=== PATIENT | female | born 1935 | race Caucasian/White ===

== ENCOUNTER → 2017-05-20 | Outpatient (CLI) | payer OTHER ==
--- NOTE | 2017-05-20 17:10 | MG ---
HISTORY: SCREENING Comparison: May 04, 2016 and April 17, 2015 FINDINGS: CC and MLO projections of the left breast were obtained. Scattered fibroglandular tissue is seen to be present without significant interval change. No suspicious architectural distortion, mass or clus tered microcalcifications can be observed to suggest malignancy. No skin thickening or nipple retrac tion is appreciated. No pathological lymphadenopathy can be identified. Benign-appearing calcificat ions are noted. IMPRESSION: NO RADIOGRAPHIC EVIDENCE OF MALIGNANCY. ACR CATEGORY 2 - benign findings. FOLLOW-UP EXAM 1 YEAR. Diagnostic CAD was utilized and reviewed. * 0 (ZERO) - ASSESSMENT INCOMPLETE; ADDITIONAL IMAGING IS NEEDED. * 1/ (ONE) - NEGATIVE. * 2/II (TWO) - BENIGN FINDINGS. * 3/III (THREE) - PROBABLY BENIGN FINDING; SHORT INTERVAL FOLLOW-UP SUGGESTED. * 4/IV (FOUR) - SUSPICIOUS ABNORMALITY; BIOPSY SHOULD BE CONSIDERED. * 5/V - HIGHLY SUSPICIOUS OF MALIGNANCY; BIOPSY SHOULD BE PERFORMED. A NEGATIVE X-RAY REPORT SHOULD NOT DELAY BIOPSY IF A DOMINANT OR CLINICALLY SUSPICIOUS MASS IS PRESENT; 4 TO 8 PERCENT OF CANCERS ARE NOT IDENTIFIED BY X-RAY. A NEGA TIVE REPORT MAY REINFORCE THE CLINICAL IMPRESSION. ADENOSIS AND DENSE BREASTS MAY OBSCURE AN UNDERLY ING NEOPLASM. Reported By:
== END ==
LOC: RAD 09:06
PROVIDERS: ATTEND Internal Medicine
DX: Z12.31 Encounter for screening mammogram for malignant neoplasm of breast (principal)
CPT/HCPCS: 77067

== ENCOUNTER 2024-10-05 12:11 | Observation (INO) ==
[2024-10-05 12:52] LABS: MEAN PLATELET VOLUME 7.0 fL (7.4-11.0); RED CELL DISTRIBUTION WIDTH 14.1 % (11.6-16.5)
[2024-10-05 12:58] LABS: INR 1.00 (0.8-1.3)
[2024-10-05 13:04] VITALS: BMI 23.1
[2024-10-05 13:09] LABS: CHOL/HDL RATIO 2.6 (0.0-5.0); COR NA(FOR HYPERGLY) 138 mmol/L (136-145); CREATININE 1.05 mg/dL (0.55-1.02); eGFR NON BLACK RACES 52 (>60)
--- NOTE | 2024-10-05 13:44 | CT ---
EXAM: BRAIN W/O CON HISTORY: dizziness, slurred speech, facial drooping; COMPARISON: None. TECHNIQUE: Axial CT of the head is performed from the base of the skull through the vertex without contrast . Multiplaner reformats are generated from the original axial data. FINDINGS: There is no evidence of an acute intracranial hemorrhage or extra-axial fluid collection. There is no mass effect, midline shift, or evidence of cerebral edema. The ventricular size is normal. Cortical diane-white matter differentiation is maintained without sulcal effacement. There is no evidence o f an acute stage, large artery territorial infarction. The calvarium is intact. Paranasal sinuses are predominantly clear. There are small dependent bilateral mastoid effusions of incidental note. Atherosclerosis is present within the bilateral cavernous ICA segments. Cortical brain volume is age-appropriate with mild volume loss observed. There are mild degenerative white matter changes associated with normal aging and microangiopathic degeneration. The cerebellar tonsils are normal in position. No suprasellar asymmetry is identified. IMPRESSION: No acute intracranial abnormalities Involutional changes of the brain parenchyma which are considered typical of age If there is clinical concern for an occult neurologic abnormality, MRI of the brain without and with contrast would provide a higher level of initial sensitivity. Radiation dose reduction was achieved through individualized adjustment of kVP and/or mA, through adaptive statistical iterative reconstruction, and/or through automated tube current modulation. THIS IS AN ELECTRONICALLY VERIFIED FINAL REPORT 10/05/2024 1:40 PM - Electronically signed by Demetrius Cerna MD
[2024-10-05] MEDS: ASPIRIN 81 MG CHEWTAB PO ONE (13:53)
--- NOTE | 2024-10-05 13:54 | TELESTROKE ---
[facility] Consult Date of Consult Date of Exam: 10/05/24 Time of Arrival to the ED: 12:11 Allergies Allergies Allergy/AdvReac Type Severity Reaction Status Date / Time meperidine (From Demerol) AdvReac Mild RASH Verified 04/27/24 14:28 Vital Signs Vital Signs: Temp Pulse Resp BP Pulse Ox O2 Del Method 10/05/24 12:31 98.1 F 90 16 155/68 97 Room Air 10/05/24 12:30 89 22 154/70 97 Room Air History of Present Illness History of Present Illness: [facility] Patient Name:Rupa Auguste Date of :1935 Identification Number: Date of Service:10/05/2024 12:27:13 Diagnosis: R55 - Syncope (blackout, fainting, vasovagal attack) G45.9 - Transient cerebral ischemic attack, unspecified Impression: Pt is a 89 YOF with PMH of HTN, HLD, PD who presented with complaint of dizzy, passed out, left facial droop. NIHSS: 0. Deferred thrombolytics. Admit for TIA/STROKE vs SYNCOPE vs TOXIC/METABOLIC/INFECTIOUS process. Monitor neuro checks/VS q4h with telemetry. Recommend fall precautions and seizure precautions. Goal SBP b/w 100-140 afterwards. Get ORTHOSTATIC VS. Start ASA in no ICH on final CT head read + STATIN if no contraindications. Get MRI BRAIN W/O, routine CTA head/neck, and ECHO. Get AMMONIA, BLOOD CX x2, COVID, UDS, ETOH, ESR/CRP, TROP, CK, TSH, B12, BNP, LACTIC ACID, LIPID PANEL, and A1C. Get WORKUP for TOXIC/METABOLIC/INFECTIOUS causes. PT/OT/ST eval. Our recommendations are outlined below. Recommendations: Stroke/Telemetry Floor Neuro Checks (Q2) Bedside Swallow Eval DVT Prophylaxis IV Fluids, Normal Saline Head of Bed 30 Degrees Euglycemia and Avoid Hyperthermia (PRN Acetaminophen) Sign Out: Discussed with Emergency Department Provider Advanced Imaging: Advanced Imaging Deferred because: Non-disabling symptoms as verified by the patient; no cortical signs so not consistent with LVO. Metrics: Last Known Well: Unknown Dispatch Time: 10/05/2024 12:27:12 Arrival Time: 10/05/2024 12:11:00 Initial Response Time: 10/05/2024 12:39:27Symptoms: dizzy, passed out, left facial droop. Initial patient interaction: 10/05/2024 12:49:42 NIHSS Assessment Completed: 10/05/2024 12:57:19Patient is not a candidate for Thrombolytic. Thrombolytic Medical Decision: 10/05/2024 12:58:37Patient was not deemed candidate for Thrombolytic because of following reasons: LKW outside 4.[address] Head: Images were unavailable to me at the time of the exam and after. PACS issues. Rads Read: No acute intracranial abnormalities. Involutional changes of the brain parenchyma which are considered typical of age. Primary Provider Notified of Diagnostic Impression and Management Plan on: 10/05/2024 13:45:13 History of Present Illness: Patient was brought by EMS for symptoms of dizzy, passed out, left facial droop. Pt is a 89 YOF with PMH of HTN, HLD, PD who presented with complaint of dizzy, passed out, left facial droop. Her last known well not clear (she had dizzy yesterday, passed out today). She was mowing lawn and passed out and family found her and noted possible left facial droop. She had left ankle pain, and right arm scrapes. Past Medical History: Hypertension Hyperlipidemia There is no history of Stroke Medications: No Anticoagulant use No Antiplatelet use Reviewed EMR for current medications Allergies: Reviewed Social History: Smoking: No Alcohol Use: No Drug Use: No Family History: There is no family history of premature cerebrovascular disease pertinent to this consultation ROS : 14 Points Review of Systems was performed and was negative except mentioned in HPI. Past Surgical History: There Is No Surgical History Contributory To Todays Visit Examination: BP(166/72),Pulse(82),Blood Glucose(163) 1A: Level of Consciousness - Alert; keenly responsive+ 0 1B: Ask Month and Age - Both Questions Right+ 0 1C: Blink Eyes & Squeeze Hands - Performs Both Tasks+ 0 2: Test Horizontal Extraocular Movements - Normal+ 0 3: Test Visual Rivera - No Visual Loss+ 0 4: Test Facial Palsy (Use Grimace if Obtunded) - Normal symmetry+ 0 5A: Test Left Arm Motor Drift - No Drift for 10 Seconds+ 0 5B: Test Right Arm Motor Drift - No Drift for 10 Seconds+ 0 6A: Test Left Leg Motor Drift - No Drift for 5 Seconds+ 0 6B: Test Right Leg Motor Drift - No Drift for 5 Seconds+ 0 7: Test Limb Ataxia (FNF/Heel-Gregory) - No Ataxia+ 0 8: Test Sensation - Normal; No sensory loss+ 0 9: Test Language/Aphasia - Normal; No aphasia+ 0 10: Test Dysarthria - Normal+ 0 11: Test Extinction/Inattention - No abnormality+ 0 NIHSS Score:0 NIHSS Free Text :Age/month/year: //. Pre-Morbid Modified Patricio Scale:0 Points = No symptoms at all Spoke with :ED This consult was conducted in real time using interactive audio and video technology. Patient was informed of the technology being used for this visit and agreed to proceed. Patient located in hospital and provider located at home/office setting. Patient is being evaluated for possible acute neurologic impairment and high probability of imminent or life-threatening deterioration. I spent total of 35 minutes providing care to this patient, including time for face to face visit via telemedicine, review of medical records, imaging studies and discussion of findings with providers, the patient and/or family. Dr Bernardo Richardson [facility] For Inpatient follow-up with [facility] physician please call [facility] at . As we are not an outpatient service for any post hospital discharge needs please contact the hospital for assistance. If you have any questions for the [facility] physicians or need to reconsult for clinical or diagnostic changes please contact us via [facility] at . Medical Decision Making 10/05/24 12:39 10/05/24 12:39 Labs: Laboratory Results - last 24 hr 10/05/24 12:39 WBC 9.4 RBC 4.45 Hgb 13.7 Hct 40.8 MCV 91.6 MCH 30.8 MCHC 33.6 RDW 14.1 Plt Count 373 MPV 7.0 L Neut % (Auto) 83.0 H Lymph % (Auto) 11.1 L [place] % (Auto) 4.6 Eos % (Auto) 0.8 L Baso % (Auto) 0.5 Neut # (Auto) 7.8 H Lymph # (Auto) 1.0 L [place] # (Auto) 0.4 Eos # (Auto) 0.1 Baso # (Auto) 0.0 Absolute Nucleated RBC 0.1 PT 13.2 INR Target Range - INR 1.00 APTT 26.5 PTT Comment - Fibrinogen 397 Sodium 137 Corrected Sodium 138 Potassium 4.4 Chloride 102 Carbon Dioxide 25.3 BUN 15 Creatinine 1.05 H Est GFR (MDRD) Af Amer > 60 Est GFR (MDRD) Non-Af 52 L Glucose 148 H Calcium 9.0 Corrected Calcium TNP Total Bilirubin 0.70 AST 15 ALT 9 L Alkaline Phosphatase 169 H Creatine Kinase 34 Troponin I High Sens 7.5 Total Protein 10.0 H Albumin 4.7 Globulin 5.3 H Albumin/Globulin Ratio 0.9 L Triglycerides 74 Cholesterol 172 LDL Cholesterol, Calc 92 HDL Cholesterol 65 H Cholesterol/HDL Ratio 2.6
--- NOTE | 2024-10-05 14:38 | EKG ---
Test Reason : poss stroke Blood Pressure : */* mmHG Vent. Rate : 92 BPM Atrial Rate : 92 BPM P-R Int : 172 ms QRS Dur : 96 ms QT Int : 342 ms P-R-T Axes : 51 27 56 degrees QTc Int : 422 ms Normal sinus rhythm Normal ECG No previous ECGs available Confirmed by German Cano MD ([id number]) on 10/05/2024 3:36:29 PM Referred By: Confirmed By: German Cano MD
--- NOTE | 2024-10-05 15:00 | DR.DIZZY ---
HPI Time seen Time Seen by Provider: 10/05/24 12:36 PCP Primary Care Physician: Sara HPI Comment HPI Comment: Patient had episode of dizziness while going to the bathroom yesterday. 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 Patient's family states they noticed facial droop and slurred speech about an hour prior to arrival. She did have some pain and edema on the left ankle and a skin tear on the right forearm. At this time the symptoms have resolved. Teleneuro protocol was activated. Complaint Chief Complaint:: Patient had an episode of dizziness going to bathroom yesterday, she felt better today and began mowing grass. A limb knocked her hat off and she bent over to machine operator picker and passed out. 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 She has pain and edema left lateral ankle and skin tear to right forearm. No obvious facial droop or neuro deficit at present COVID-19 Coronavirus risk:travel/contact w/high risk person: No Has patient experienced Coronavirus symptoms: No Source History Provided: Patient Mode of Arrival Mode of Arrival: Wheelchair Timing Onset of Chief Complaint: 10/04/24 Context Stroke Symptoms: Slurring and Dizziness PMH PMH Past Medical History: Yes Past Medical History: Hypertension Past Medical History Comment: Parkinson, breast CA Past Surgical History: Yes Surgical History: Hysterectomy, Mastectomy and Tonsillectomy Family History History of Family Medical Conditions: Yes Family Medical History: Hypertension Social History Does patient currently use any type of tobacco product: No Have you used tobacco products in the last 12 months: No Type of Tobacco Use: None Does any household member use tobacco: No Alcohol Use: None Do you use any recreational Drugs:: No Lives With: Family Lives Where: Home Travel Risk Coronavirus risk:travel/contact w/high risk person: No Has patient experienced Coronavirus symptoms: No Infectious screening In the last 2 months have you had wt loss of >10#?: NO Have you had fever, night sweats or hemotysis?: No Have you traveled outside the country in the last 6 months?: No Isolation: Standard ROS Review of Systems Constitutional: No Symptoms Reported Eyes: No Symptoms Reported ENTM: No Symptoms Reported Respiratoy: No Symptoms Reported Cardiovascular: No Symptoms Reported Gastrointestinal/Abdominal: No Symptoms Reported Genitourinary: Frequency; negative Dysuria Neurological: See HPI Musculoskeletal: No Symptoms Reported Integumentary: No Symptoms Reported Hematologic/Lymphatic: No Symptoms Reported Endocrine: No Symptoms Reported Psychiatric: No Symptoms Reported All Other Systems: Reviewed and Negative PE Vital Signs Vitals: Vital Signs Temperature 98.1 F Pulse Rate 96 Pulse Rate 95 Pulse Rate 92 Pulse Rate 90 Pulse Rate 93 Pulse Rate 262 Pulse Rate 90 Pulse Rate 89 Respiratory Rate 16 Respiratory Rate 22 Blood Pressure 133/63 Blood Pressure 156/71 Blood Pressure 155/68 Blood Pressure 154/70 O2 Sat by Pulse Oximetry 97 O2 Sat by Pulse Oximetry 96 O2 Sat by Pulse Oximetry 98 O2 Sat by Pulse Oximetry 97 O2 Sat by Pulse Oximetry 97 O2 Sat by Pulse Oximetry 80 O2 Sat by Pulse Oximetry 97 O2 Sat by Pulse Oximetry 97 General Limitations: No Limitations General Appearance: Alert and In No Apparent Distress Head Head Exam: Normal Inspection Eyes Eye exam: Normal Appearance ENT ENT Exam: Normal Exam, Normal Oropharynx and Normal External Ear Exam Neck Neck Exam: Normal Inspection and Full ROM Chest Chest Inspection: Normal Inspection Respiratory Respiratory Exam: Normal Lung Sounds Bilat Cardiovascular Cardiovascular Exam: Regular Rate and Normal Rhythm Abdominal Exam Abdominal Exam: Normal Inspection, Normal Bowel Sounds and Soft Rectal Rectal Exam: Deferred Extremeties Extremities Exam: Normal Inspection and Full ROM Back Back Exam: Normal Inspection and Full ROM Neurologic Neurological Exam: Alert and Oriented X3 Psychiatric Psychiatric Exam: Normal Affect and Normal Mood Skin Skin Exam: Warm, Dry, Intact and Normal Color COURSE Treatment Treatment: Discussed results of workup with patient. Patient refused MRI of the head due to claustrophobia stating that even with medicine she does not want it. She states she understands the risks but she still refused. Discussed case with teleneuro and they recommended CTA head and neck, MRI of the head and echocardiogram. They also recommended admission for observation. At this time I believe patient has had a TIA and may also have symptoms related to UTI. Consultation Called: 15:50 Consultation Comments: Discussed case with Dr. Rivero and he is agreeable to admission. [facility]OR Labs Reviewed 10/05/24 12:39 10/05/24 12:39 Laboratory: WBC 9.4 X10^3/uL (3.6-10.0) 10/05/24 12:39 RBC 4.45 X10^6/uL (3.5-5.4) 10/05/24 12:39 Hgb 13.7 g/dL (12.0-16.0) 10/05/24 12:39 Hct 40.8 % (36.0-47.0) 10/05/24 12:39 MCV 91.6 fL (80.0-100.0) 10/05/24 12:39 MCH 30.8 pg (27.0-34.0) 10/05/24 12:39 MCHC 33.6 g/dL (33.0-35.0) 10/05/24 12:39 RDW 14.1 % (11.6-16.5) 10/05/24 12:39 Plt Count 373 X10^3/uL (150.0-450.0) 10/05/24 12:39 MPV 7.0 fL (7.4-11.0) L 10/05/24 12:39 Neut % (Auto) 83.0 % (42.0-75.0) H 10/05/24 12:39 Lymph % (Auto) 11.1 % (21.0-51.0) L 10/05/24 12:39 [place] % (Auto) 4.6 % (0.0-13.0) 10/05/24 12:39 Eos % (Auto) 0.8 % (0.9-2.9) L 10/05/24 12:39 Baso % (Auto) 0.5 % (0.2-1.0) 10/05/24 12:39 Neut # (Auto) 7.8 x10^3/uL (2.2-4.8) H 10/05/24 12:39 Lymph # (Auto) 1.0 X10^3/uL (1.3-2.9) L 10/05/24 12:39 [place] # (Auto) 0.4 x10^3/uL (0.3-0.8) 10/05/24 12:39 Eos # (Auto) 0.1 x10^3/uL (0.0-0.2) 10/05/24 12:39 Baso # (Auto) 0.0 X10^3/uL (0.0-0.1) 10/05/24 12:39 Absolute Nucleated RBC 0.1 /100WBC 10/05/24 12:39 PT 13.2 SECONDS (11.8-14.3) 10/05/24 12:39 INR Target Range - 10/05/24 12:39 INR 1.00 (0.8-1.3) 10/05/24 12:39 APTT 26.5 SECONDS (22.9-36.5) 10/05/24 12:39 PTT Comment - 10/05/24 12:39 Fibrinogen 397 mg/dL (239-489) 10/05/24 12:39 Sodium 137 mmol/L (136-145) 10/05/24 12:39 Corrected Sodium 138 mmol/L (136-145) 10/05/24 12:39 Potassium 4.4 mmol/L (3.5-5.1) 10/05/24 12:39 Chloride 102 mmol/L (98-107) 10/05/24 12:39 Carbon Dioxide 25.3 mmol/L (21-32) 10/05/24 12:39 BUN 15 mg/dL (7-18) 10/05/24 12:39 Creatinine 1.05 mg/dL (0.55-1.02) H 10/05/24 12:39 Est GFR (MDRD) Af Amer > 60 (>60) 10/05/24 12:39 Est GFR (MDRD) Non-Af 52 (>60) L 10/05/24 12:39 Glucose 148 mg/dL (65-99) H 10/05/24 12:39 Calcium 9.0 mg/dL (8.5-10.1) 10/05/24 12:39 Corrected Calcium TNP 10/05/24 12:39 Total Bilirubin 0.70 mg/dL (0.2-1.0) 10/05/24 12:39 AST 15 Units/L (15-37) 10/05/24 12:39 ALT 9 Units/L (12-78) L 10/05/24 12:39 Alkaline Phosphatase 169 Units/L (46-116) H 10/05/24 12:39 Creatine Kinase 34 Units/L (26-192) 10/05/24 12:39 Troponin I High Sens 7.5 ng/L (4.0-60.0) 10/05/24 12:39 Total Protein 10.0 g/dL (6.4-8.2) H 10/05/24 12:39 Albumin 4.7 g/dL (3.4-5.0) 10/05/24 12:39 Globulin 5.3 g/dL (2.5-4.5) H 10/05/24 12:39 Albumin/Globulin Ratio 0.9 Ratio (1.1-2.1) L 10/05/24 12:39 Triglycerides 74 mg/dL (0-150) 10/05/24 12:39 Cholesterol 172 mg/dL (0-200) 10/05/24 12:39 LDL Cholesterol, Calc 92 mg/dL (0-100) 10/05/24 12:39 HDL Cholesterol 65 mg/dL (40-60) H 10/05/24 12:39 Cholesterol/HDL Ratio 2.6 (0.0-5.0) 10/05/24 12:39 Blood Type O POSITIVE 10/05/24 12:39 Antibody Screen Negative 10/05/24 12:39 Opioid Opioid Risk Tool Age (Iker box if 16-45): No History of Preadolescent Sexual Abuse: No Total: 0 Total Score Risk Category: Low Risk Copyright: Jeff MAYA predicting aberrant behaviors Discharge Plan Diagnosis Discharge Problem: Brain TIA, Acute UTI Discharge Plan Patient Disposition: 09 ADMITTED INPATIENT Condition: Stable Prescriptions: No Action primidone 50 mg tablet 50 mg PO QHS 30 Days Qty: 30 1RF diclofenac sodium 1 % gel 4 g topical QID 14 Days Qty: 100 5RF Rx Instructions: apply to single knee, ankle, foot; for foot includes sole/toes/top of foot buspirone 5 mg tablet 5 mg PO BID 30 Days Qty: 60 1RF amlodipine 5 mg tablet 5 mg PO BID 30 Days Qty: 60 4RF ondansetron HCl 4 mg tablet 4 mg PO BID PRN carbidopa-levodopa 25-100 mg tablet 1 tab PO TID simvastatin 20 mg tablet 20 mg PO DAILY Health Concerns: Post Hospitalization: new medications and changes needed to prevent readmission or further decline. Pt educated and given instructions on all concerns. Plan of Treatment: Continue with present treatment and follow up plan. Pt is to keep follow up appointment as instructed and take medications as ordered. Orders to Discharge Patient Discharge Orders: Transfer (Routine); Ordered 10/05/24 Ordered By: Rico Rodriguez Follow ups/Referrals Follow ups/Referrals: BRANDEE LEVINE [Primary Care Provider, Unknown] - 3 days Instructions Stand Alone Forms: Find Help Web Site, Post Hospital Follow Up Care Print Language: KAZAKH
--- NOTE | 2024-10-05 15:07 | RAD ---
EXAM: CHEST, 1 VIEW HISTORY: dizziness, slurred speech, facial drooping; COMPARISON: No relevant prior studies were available for comparison at the time of interpretation. TECHNIQUE: CHEST, 1 VIEW FINDINGS: Chest: Lines and tubes: None Mediastinum: Cardiac and mediastinal shadow is within normal limits for size and contour. Pulmonary vessels: No pulmonary vascular congestion. Lung corbin: No suspicious airspace opacity. Pleura: No effusion. No pneumothorax. Bones and soft tissues: No acute osseous or soft tissue abnormality. IMPRESSION: 1. No acute cardiopulmonary abnormality THIS IS AN ELECTRONICALLY VERIFIED FINAL REPORT 10/05/2024 3:03 PM - Electronically signed by Sandor Mendez MD
[2024-10-05 15:09] LABS: BLOOD/HEMOGLOBIN,URINE 1+ (NEGATIVE); LEUKOCYTE ESTERASE ,URINE 2+ (NEGATIVE); NITRITES,URINE POSITIVE (NEGATIVE)
[2024-10-05 15:11] LABS: APPEARANCE,URINE CLOUDY (CLEAR)
[2024-10-05 15:18] LABS: SQUAMOUS EPITHELIAL CELL,UR FEW /HPF (NEGATIVE)
[2024-10-05] MEDS ORDERED: ULTRAM PO PRN (16:38)
[2024-10-05] MEDS ORDERED: TYLENOL 325 MG TAB PO PRN (16:38)
[2024-10-05] MEDS ORDERED: CONSULT PHARMACY - POTASSIUM & MAGNESIUM XX SCH (16:38)
[2024-10-05] MEDS: OMNIPAQUE 350 mg/mL 100 mL BTL 100 ML ONE (17:27)
[2024-10-05] MEDS: ASPIRIN 81 MG CHEWTAB ONE (17:27)
[2024-10-05] MEDS: LEVAQUIN TAB 750 MG PO SCH (17:36)
--- NOTE | 2024-10-05 18:56 | CT ---
EXAM: CTA CAROTID/NECK HISTORY: Left facial droop. TECHNIQUE: Spiral axial CT images are obtained through the neck from the skull base to the thoracic inlet with the administration of intravenous contrast. Sagittal and coronal reformatted images were reconstructed. 2-D and 3-D MIP vascular images are reformatted. Evaluation for stenosis performed by employing NASCET criteria. COMPARISON: None available. FINDINGS: Note: Exam severely degraded by motion artifacts (especially at the carotid bifurcations). There is evidence for calcified atherosclerotic mural plaques seen within the cavernous, clinoid, ophthalmic, and communicating segments of the carotid siphons, with estimated mild (less than 50%), presumed nonhemodynamically significant, segmental stenoses. There is calcified atherosclerotic mural plaque seen at the carotid bifurcations and ICA origins (left greater than right), with an estimated mild (less than 50%), presumed nonhemodynamically significant, ICA origin stenoses. There is no discernible definite hemodynamically significant (or greater than 70%) ICA or ECA stenosis or occlusion seen. Both common carotid arteries are widely patent. Both vertebral arteries are patent with antegrade blood flow. There is mild left vertebral artery dominance. Normal great vessel branch anatomy is seen at the aortic arch. There is severe calcified aortic arch mural plaque. IMPRESSION: 1. Calcified atherosclerotic mural plaques seen within the cavernous, clinoid, ophthalmic, and communicating segments of the carotid siphons, with estimated mild (less than 50%), presumed nonhemodynamically significant, segmental stenoses. 2. Calcified atherosclerotic mural plaque seen at the carotid bifurcations and ICA origins (left greater than right), with an estimated mild (less than 50%), presumed nonhemodynamically significant, ICA origin stenoses. 3. No discernible definite hemodynamically significant (or greater than 70%) ICA or ECA stenosis or occlusion seen. 4. No gross arterial dissection or aneurysmal dilatation noted. 5. Patent vertebral arteries; left vertebral artery dominance. THIS IS AN ELECTRONICALLY VERIFIED FINAL REPORT 10/05/2024 6:52 PM - Electronically signed by Charlie Cheng MD
--- NOTE | 2024-10-05 18:59 | CT ---
EXAM: CTA HEAD HISTORY: Left facial droop. Dizziness. TECHNIQUE: Spiral axial CT images are obtained through the brain with the administration of intravenous contrast. Sagittal and coronal reformatted images were reconstructed. 2-D and 3-D MIP vascular images were reformatted. Evaluation for carotid stenosis performed by implying NASCET criteria. COMPARISON: Head CT dated October 05, 2024. FINDINGS: There is evidence for calcified atherosclerotic mural plaques seen within the petrous, laerum, cavernous, clinoid, ophthalmic, and communicating segments of the carotid siphons, with estimated mild (less than 50%), presumed nonhemodynamically significant, segmental stenoses. The [place] of Blood is intact. There is no cerebral aneurysm or dissection seen. No hemodynamically significant arterial stenosis or occlusion involving the anterior cerebral arteries, middle cerebral arteries, and posterior cerebral arteries seen. The basilar artery and distal vertebral arteries are within normal limits. The visualized internal cerebral veins, emissary veins, and dural venous sinuses are patent. IMPRESSION: 1. Calcified atherosclerotic mural plaques seen within the petrous, laerum, cavernous, clinoid, ophthalmic, and communicating segments of the carotid siphons, with estimated mild (less than 50%), presumed nonhemodynamically significant, segmental stenoses. 2. No definitely hemodynamically significant (or greater than 50%) arterial stenosis or occlusion seen. 3. No gross cerebral aneurysm or dissection seen. 4. Normal the dural venous sinuses and emissary veins are patent. THIS IS AN ELECTRONICALLY VERIFIED FINAL REPORT 10/05/2024 6:56 PM - Electronically signed by Charlie Cheng MD
[2024-10-05] MEDS: MAG-OX TAB PO SCH (20:33)
[2024-10-05] MEDS: RESTORIL CAP 15 MG PO PRN (20:34)
[2024-10-05] MEDS: NORVASC TAB 5 MG PO SCH (20:34)
[2024-10-05] MEDS: BUSPAR PO SCH (20:34)
[2024-10-05] MEDS: SINEMET (PLAIN) 25/100 MG PO SCH (21:22)
[2024-10-06 05:42] LABS: MEAN PLATELET VOLUME 6.9 fL (7.4-11.0); RED CELL DISTRIBUTION WIDTH 14.1 % (11.6-16.5)
[2024-10-06 05:56] LABS: CREATININE 0.84 mg/dL (0.55-1.02); eGFR NON BLACK RACES > 60 (>60)
--- NOTE | 2024-10-06 06:54 | RAD ---
EXAM: ANKLE, LEFT HISTORY: PAIN AFTER FALL; COMPARISON: None. TECHNIQUE: 3 views FINDINGS: Nondisplaced transverse lateral malleolus fracture. Symmetric ankle mortise. Intact talar dome. Moderate anterior and lateral soft tissue edema. IMPRESSION: Nondisplaced lateral malleolus fracture. THIS IS AN ELECTRONICALLY VERIFIED FINAL REPORT 10/06/2024 6:42 AM - Electronically signed by James Mendoza MD
--- NOTE | 2024-10-06 06:54 | RAD ---
EXAM: FOREARM, RIGHT two-view HISTORY: PAIN AFTER FALL; COMPARISON: None FINDINGS: No acute fracture or dislocation. No acute soft tissue abnormality. IMPRESSION: No acute fracture or dislocation. THIS IS AN ELECTRONICALLY VERIFIED FINAL REPORT 10/06/2024 6:40 AM - Electronically signed by Matthew Whitney MD
[2024-10-06] MEDS: PLAVIX PO SCH (10:17)
[2024-10-06] MEDS: ZOFRAN ODT SL PRN (15:26)
[2024-10-07 06:37] LABS: MEAN PLATELET VOLUME 7.3 fL (7.4-11.0); RED CELL DISTRIBUTION WIDTH 14.1 % (11.6-16.5)
[2024-10-07 06:39] LABS: CREATININE 1.04 mg/dL (0.55-1.02); eGFR NON BLACK RACES 53 (>60)
--- NOTE | 2024-10-07 10:47 | DR.H&P ---
H&P History & Physical for Day of: H&P Date: 10/06/24 Chief Complaint Chief Complaint: slurred speech Dizziness, syncope, History of Present Illness History of Present Illness: Patient is a 89-year-old female with a past medical history of Parkinson's disease, hypertension, hyperlipidemia presenting after having a syncopal episode after she was mowing the lawn. Her family stated that she had a facial droop and slurred speech prior to arrival to the ER. She also had left ankle pain. Per ER note, on arrival patient symptoms appear to have resolved. Teleneurology was consulted. Labs/imaging: WBC 7.2, hemoglobin 12.2, platelets 352, sodium 138, potassium 4.1, creatinine 0.84, glucose 94, UA consistent with infection, urine culture pending. CT of the head was negative,'s chest x-ray was negative, she did have a CTA of the head and neck that revealed areas that are less than 50% stenosis and are nonhemodynamically significant. An x-ray of the left ankle did reveal a nondisplaced fracture. Patient had also refused to have an MRI. Patient was admitted for TIA, acute cystitis, left ankle fracture. She will have an echo this morning. She is on IV antibiotics Levaquin. Will consult podiatry for the fracture. Restart home medications. Otherwise continue current treatment plan. Continue closely monitor and follow-up labs/imaging. Time spent for clinical assessment, reviewing labs/imaging, physical exam, decision making and documentation greater than 45 mins. Past Medical History Past Medical History: Hypertension Past Surgical History Surgical History: Hysterectomy, Mastectomy, Neurosurgery, Ortho Surgery and Tonsillectomy Family History Family Medical History: Cancer Social History Does patient currently use any type of tobacco product: No Have you used tobacco products in the last 12 months: No Type of Tobacco Use: None Does any household member use tobacco: No Alcohol Use: None Drug Use: None Medications Home Medications: Home Medications Medication Instructions Recorded Confirmed Type carbidopa 25 mg-levodopa 100 mg 1 tab PO TID 10/05/24 10/05/24 History tablet ondansetron HCl 4 mg tablet 4 mg PO BID PRN 10/05/24 0 10/05/24 History simvastatin 20 mg tablet 20 mg PO DAILY 10/05/2409/26 History Allergies Allergies Allergy/AdvReac Type Severity Reaction Status Date / Time meperidine (From Demerol) AdvReac Mild RASH Verified 04/27/24 14:28 Labs 10/07/24 05:44 10/07/24 05:44 Labs: 10/05/24 14:59 Urine,Clean Catch Urine Culture - Preliminary Laboratory WBC 7.2 X10^3/uL (3.6-10.0) 10/06/24 05:28 RBC 3.95 X10^6/uL (3.5-5.4) 10/06/24 05:28 Hgb 12.2 g/dL (12.0-16.0) 10/06/24 05:28 Hct 35.8 % (36.0-47.0) L 10/06/24 05:28 MCV 90.8 fL (80.0-100.0) 10/06/24 05:28 MCH 31.0 pg (27.0-34.0) 10/06/24 05:28 MCHC 34.1 g/dL (33.0-35.0) 10/06/24 05:28 RDW 14.1 % (11.6-16.5) 10/06/24 05:28 Plt Count 352 X10^3/uL (150.0-450.0) 10/06/24 05:28 MPV 6.9 fL (7.4-11.0) L 10/06/24 05:28 Neut % (Auto) 62.9 % (42.0-75.0) 10/06/24 05:28 Lymph % (Auto) 24.0 % (21.0-51.0) 10/06/24 05:28 [place] % (Auto) 9.9 % (0.0-13.0) 10/06/24 05:28 Eos % (Auto) 2.5 % (0.9-2.9) 10/06/24 05:28 Baso % (Auto) 0.7 % (0.2-1.0) 10/06/24 05:28 Neut # (Auto) 4.5 x10^3/uL (2.2-4.8) 10/06/24 05:28 Lymph # (Auto) 1.7 X10^3/uL (1.3-2.9) 10/06/24 05:28 [place] # (Auto) 0.7 x10^3/uL (0.3-0.8) 10/06/24 05:28 Eos # (Auto) 0.2 x10^3/uL (0.0-0.2) 10/06/24 05:28 Baso # (Auto) 0.1 X10^3/uL (0.0-0.1) 10/06/24 05:28 Absolute Nucleated RBC 0.1 /100WBC 10/06/24 05:28 PT 13.2 SECONDS (11.8-14.3) 10/05/24 12:39 INR Target Range - 10/05/24 12:39 INR 1.00 (0.8-1.3) 10/05/24 12:39 APTT 26.5 SECONDS (22.9-36.5) 10/05/24 12:39 PTT Comment - 10/05/24 12:39 Fibrinogen 397 mg/dL (239-489) 10/05/24 12:39 Sodium 138 mmol/L (136-145) 10/06/24 05:28 Corrected Sodium TNP 10/06/24 05:28 Potassium 4.1 mmol/L (3.5-5.1) 10/06/24 05:28 Chloride 103 mmol/L (98-107) 10/06/24 05:28 Carbon Dioxide 29.6 mmol/L (21-32) 10/06/24 05:28 BUN 11 mg/dL (7-18) 10/06/24 05:28 Creatinine 0.84 mg/dL (0.55-1.02) 10/06/24 05:28 Est GFR (MDRD) Af Amer > 60 (>60) 10/06/24 05:28 Est GFR (MDRD) Non-Af > 60 (>60) 10/06/24 05:28 Glucose 94 mg/dL (65-99) 10/06/24 05:28 Calcium 8.9 mg/dL (8.5-10.1) 10/06/24 05:28 Corrected Calcium TNP 10/06/24 05:28 Magnesium 2.0 mg/dL (2.0-2.9) 10/06/24 05:28 Total Bilirubin 0.80 mg/dL (0.2-1.0) 10/06/24 05:28 AST 13 Units/L (15-37) L 10/06/24 05:28 ALT 11 Units/L (12-78) L 10/06/24 05:28 Alkaline Phosphatase 145 Units/L (46-116) H 10/06/24 05:28 Creatine Kinase 34 Units/L (26-192) 10/05/24 12:39 Troponin I High Sens 7.5 ng/L (4.0-60.0) 10/05/24 12:39 Total Protein 8.3 g/dL (6.4-8.2) H 10/06/24 05:28 Albumin 3.8 g/dL (3.4-5.0) 10/06/24 05:28 Globulin 4.5 g/dL (2.5-4.5) 10/06/24 05:28 Albumin/Globulin Ratio 0.8 Ratio (1.1-2.1) L 10/06/24 05:28 Triglycerides 74 mg/dL (0-150) 10/05/24 12:39 Cholesterol 172 mg/dL (0-200) 10/05/24 12:39 LDL Cholesterol, Calc 92 mg/dL (0-100) 10/05/24 12:39 HDL Cholesterol 65 mg/dL (40-60) H 10/05/24 12:39 Cholesterol/HDL Ratio 2.6 (0.0-5.0) 10/05/24 12:39 Specimen Type Clean catch urine 10/05/24 14:59 Urine Color [place] (YELLOW) 10/05/24 14:59 Urine Appearance Cloudy (CLEAR) 10/05/24 14:59 Urine pH 6.0 (5.0 - 8.0) 10/05/24 14:59 Ur Specific [place] 1.015 (1.000-1.030) 10/05/24 14:59 Urine Protein 2+ (NEGATIVE) 10/05/24 14:59 Urine Glucose (UA) Negative (NEGATIVE) 10/05/24 14:59 Urine Ketones Negative (NEGATIVE) 10/05/24 14:59 Urine Blood 1+ (NEGATIVE) 10/05/24 14:59 Urine Nitrite Positive (NEGATIVE) 10/05/24 14:59 Urine Bilirubin Negative (NEGATIVE) 10/05/24 14:59 Urine Urobilinogen 1+ (NORMAL) 10/05/24 14:59 Ur Leukocyte Esterase 2+ (NEGATIVE) 10/05/24 14:59 Urine RBC 0-2 /HPF (0-3) 10/05/24 14:59 Urine WBC 5-10 /HPF (0-5) A 10/05/24 14:59 Ur Squamous Epith Cells Few /HPF (NEGATIVE) 10/05/24 14:59 Urine Bacteria 3+ /HPF (NEGATIVE) 10/05/24 14:59 Ur Culture Indicated? Yes/culture set up 10/05/24 14:59 Blood Type O POSITIVE 10/06/24 05:28 Antibody Screen Negative 10/05/24 12:39 Review of Systems Constitutional: No Symptoms Reported Eyes: No Symptoms Reported ENT: No Symptoms Reported Respiratory: No Symptoms Reported Cardiovascular: No Symptoms Reported Gastrointestinal: No Symptoms Reported Genitourinary: No Symptoms Reported Musculoskeletal: No Symptoms Reported Skin: No Symptoms Reported Neurological: Weakness Physical Exam Vital Signs: Vital Signs Temperature 97.5 F Temperature 97.7 F Pulse Rate [Left Radial] 89 Pulse Rate [Left Radial] 85 Pulse Rate [Left Radial] 81 Pulse Rate [Left Radial] 82 Pulse Rate [Left Radial] 77 Respiratory Rate 16 Respiratory Rate 18 Blood Pressure [Left Arm] 149/63 Blood Pressure [Left Arm] 137/63 Blood Pressure [Left Arm] 140/60 Blood Pressure [Left Arm] 132/62 Blood Pressure [Left Arm] 137/65 O2 Sat by Pulse Oximetry 94 O2 Sat by Pulse Oximetry 96 Oriented: Normal Eyes: Normal Ear: Normal Nose: Normal Throat: Normal Respiratory: Clear Throughout Cardiovascular: Normal : Normal Auscultation: Bowel Sounds: Normal Palpation: Normal Tenderness: Normal Skin: Normal Musculoskeletal: Normal Psychiatric: Normal Mood Description: Calm and Appropriate Affect: Normal Speech Pattern: Clear and Appropriate Assessment/Plan (1) Acute UTI: Status: Acute Plan: IV levaquin follow up culture (2) Brain TIA: Status: Acute Plan: Monitor (3) Closed left ankle fracture: Qualifiers: Encounter type: initial encounter Qualified Code(s): S82.892A - Other fracture of left lower leg, initial encounter for closed fracture Status: Acute Plan: consult podiatry (4) Parkinson disease: Qualifiers: Dyskinesia presence: unspecified whether dyskinesia Fluctuating manifestations: unspecified whether manifestations fluctuate Qualified Code(s): G20.A1 - Parkinson's disease without dyskinesia, without mention of fluctuations Status: Acute (5) Hypertension, benign: Status: Acute (6) Mixed hyperlipidemia: Status: Acute Review H&P Reviewed: Yes Patient was examined?: Yes
--- NOTE | 2024-10-07 11:04 | PCM.PROG ---
Progress Note Progress Note for Day of Date of Exam: 10/07/24 Subjective Subjective: Patient is a 89-year-old female with a past medical history of Parkinson's disease, hypertension, hyperlipidemia admitted for TIA, acute cystitis, left ankle fracture. This morning she is resting in bed. No acute events overnight. Labs/imaging: WBC 8.2, hemoglobin 12.4, platelets 343, sodium 139, potassium 3.8, creatinine 1.04, glucose 95, urine culture gram negative rods, final pending. Echo pending. Patient reports improvement in her symptoms. Her strength is gradually improving. She is on IV antibiotics Levaquin. Podiatry is consulted and recommend boot, patient is able to do full weightbearing. Recommend follow-up with them next week. Home medications have been resumed. Otherwise continue current treatment plan. Continue closely monitor and follow-up labs/imaging. Time spent for clinical assessment, reviewing labs/imaging, physical exam, decision making and documentation greater than 45 mins. Past Medical Family Social History Allergies: Allergies meperidine (From Demerol) Adverse Reaction (Mild, Verified 04/27/24 14:28) RASH Review of Systems ROS changes noted: see HPI Vital Signs and I&O's Vital Signs: Vital Signs Temperature 97.8 F Temperature 97.4 F Pulse Rate [Left Radial] 74 Pulse Rate [Left Radial] 70 Respiratory Rate 16 Respiratory Rate 16 Blood Pressure [Left Arm] 123/58 Blood Pressure [Left Arm] 119/58 O2 Sat by Pulse Oximetry 96 O2 Sat by Pulse Oximetry 94 Intake and Output: Intake & Output 10/04/24 10/05/24 10/06/24 10/07/24 23:59 23:59 23:59 23:59 Intake Total 1849 Balance 1849 Physical Exam Oriented: Normal Eyes: Normal Ear: Normal Nose: Normal Throat: Normal Cardiovascular: Normal : Normal Auscultation: Bowel Sounds: Normal Tenderness: Normal Skin: Normal Musculoskeletal: Normal Psychiatric: Normal Mood Description: Calm and Appropriate Affect: Normal Speech Pattern: Clear and Appropriate Laboratory and Diagnostics 10/07/24 05:44 10/07/24 05:44 Labs: 10/05/24 14:59 Urine,Clean Catch Urine Culture - Preliminary Laboratory WBC 8.2 X10^3/uL (3.6-10.0) 10/07/24 05:44 RBC 4.10 X10^6/uL (3.5-5.4) 10/07/24 05:44 Hgb 12.4 g/dL (12.0-16.0) 10/07/24 05:44 Hct 37.5 % (36.0-47.0) 10/07/24 05:44 MCV 91.5 fL (80.0-100.0) 10/07/24 05:44 MCH 30.2 pg (27.0-34.0) 10/07/24 05:44 MCHC 33.0 g/dL (33.0-35.0) 10/07/24 05:44 RDW 14.1 % (11.6-16.5) 10/07/24 05:44 Plt Count 343 X10^3/uL (150.0-450.0) 10/07/24 05:44 MPV 7.3 fL (7.4-11.0) L 10/07/24 05:44 Neut % (Auto) 48.1 % (42.0-75.0) 10/07/24 05:44 Lymph % (Auto) 35.4 % (21.0-51.0) 10/07/24 05:44 [place] % (Auto) 10.6 % (0.0-13.0) 10/07/24 05:44 Eos % (Auto) 5.4 % (0.9-2.9) H 10/07/24 05:44 Baso % (Auto) 0.5 % (0.2-1.0) 10/07/24 05:44 Neut # (Auto) 3.9 x10^3/uL (2.2-4.8) 10/07/24 05:44 Lymph # (Auto) 2.9 X10^3/uL (1.3-2.9) 10/07/24 05:44 [place] # (Auto) 0.9 x10^3/uL (0.3-0.8) H 10/07/24 05:44 Eos # (Auto) 0.4 x10^3/uL (0.0-0.2) H 10/07/24 05:44 Baso # (Auto) 0.0 X10^3/uL (0.0-0.1) 10/07/24 05:44 Absolute Nucleated RBC 0.1 /100WBC 10/07/24 05:44 PT 13.2 SECONDS (11.8-14.3) 10/05/24 12:39 INR Target Range - 10/05/24 12:39 INR 1.00 (0.8-1.3) 10/05/24 12:39 APTT 26.5 SECONDS (22.9-36.5) 10/05/24 12:39 PTT Comment - 10/05/24 12:39 Fibrinogen 397 mg/dL (239-489) 10/05/24 12:39 Sodium 139 mmol/L (136-145) 10/07/24 05:44 Corrected Sodium TNP 10/07/24 05:44 Potassium 3.8 mmol/L (3.5-5.1) 10/07/24 05:44 Chloride 102 mmol/L (98-107) 10/07/24 05:44 Carbon Dioxide 28.6 mmol/L (21-32) 10/07/24 05:44 BUN 19 mg/dL (7-18) H 10/07/24 05:44 Creatinine 1.04 mg/dL (0.55-1.02) H 10/07/24 05:44 Est GFR (MDRD) Af Amer > 60 (>60) 10/07/24 05:44 Est GFR (MDRD) Non-Af 53 (>60) L 10/07/24 05:44 Glucose 95 mg/dL (65-99) 10/07/24 05:44 Calcium 8.8 mg/dL (8.5-10.1) 10/07/24 05:44 Corrected Calcium TNP 10/07/24 05:44 Magnesium 2.0 mg/dL (2.0-2.9) 10/06/24 05:28 Total Bilirubin 0.70 mg/dL (0.2-1.0) 10/07/24 05:44 AST 13 Units/L (15-37) L 10/07/24 05:44 ALT 8 Units/L (12-78) L 10/07/24 05:44 Alkaline Phosphatase 152 Units/L (46-116) H 10/07/24 05:44 Creatine Kinase 34 Units/L (26-192) 10/05/24 12:39 Troponin I High Sens 7.5 ng/L (4.0-60.0) 10/05/24 12:39 Total Protein 8.4 g/dL (6.4-8.2) H 10/07/24 05:44 Albumin 3.7 g/dL (3.4-5.0) 10/07/24 05:44 Globulin 4.7 g/dL (2.5-4.5) H 10/07/24 05:44 Albumin/Globulin Ratio 0.8 Ratio (1.1-2.1) L 10/07/24 05:44 Triglycerides 74 mg/dL (0-150) 10/05/24 12:39 Cholesterol 172 mg/dL (0-200) 10/05/24 12:39 LDL Cholesterol, Calc 92 mg/dL (0-100) 10/05/24 12:39 HDL Cholesterol 65 mg/dL (40-60) H 10/05/24 12:39 Cholesterol/HDL Ratio 2.6 (0.0-5.0) 10/05/24 12:39 Specimen Type Clean catch urine 10/05/24 14:59 Urine Color [place] (YELLOW) 10/05/24 14:59 Urine Appearance Cloudy (CLEAR) 10/05/24 14:59 Urine pH 6.0 (5.0 - 8.0) 10/05/24 14:59 Ur Specific [place] 1.015 (1.000-1.030) 10/05/24 14:59 Urine Protein 2+ (NEGATIVE) 10/05/24 14:59 Urine Glucose (UA) Negative (NEGATIVE) 10/05/24 14:59 Urine Ketones Negative (NEGATIVE) 10/05/24 14:59 Urine Blood 1+ (NEGATIVE) 10/05/24 14:59 Urine Nitrite Positive (NEGATIVE) 10/05/24 14:59 Urine Bilirubin Negative (NEGATIVE) 10/05/24 14:59 Urine Urobilinogen 1+ (NORMAL) 10/05/24 14:59 Ur Leukocyte Esterase 2+ (NEGATIVE) 10/05/24 14:59 Urine RBC 0-2 /HPF (0-3) 10/05/24 14:59 Urine WBC 5-10 /HPF (0-5) A 10/05/24 14:59 Ur Squamous Epith Cells Few /HPF (NEGATIVE) 10/05/24 14:59 Urine Bacteria 3+ /HPF (NEGATIVE) 10/05/24 14:59 Ur Culture Indicated? Yes/culture set up 10/05/24 14:59 Blood Type O POSITIVE 10/06/24 05:28 Antibody Screen Negative 10/05/24 12:39 Plan (1) Acute UTI: Status: Acute Plan: IV levaquin follow up culture (2) Brain TIA: Status: Acute Plan: Monitor (3) Closed left ankle fracture: Status: Acute Qualifiers: Encounter type: initial encounter Qualified Code(s): S82.892A - Other fracture of left lower leg, initial encounter for closed fracture Plan: consult podiatry (4) Parkinson disease: Status: Acute Qualifiers: Dyskinesia presence: unspecified whether dyskinesia Fluctuating manifestations: unspecified whether manifestations fluctuate Qualified Code(s): G20.A1 - Parkinson's disease without dyskinesia, without mention of fluctuations (5) Hypertension, benign: Status: Acute (6) Mixed hyperlipidemia: Status: Acute
[2024-10-08 06:43] LABS: MEAN PLATELET VOLUME 7.3 fL (7.4-11.0); RED CELL DISTRIBUTION WIDTH 14.0 % (11.6-16.5)
[2024-10-08 07:01] LABS: CREATININE 1.10 mg/dL (0.55-1.02); eGFR NON BLACK RACES 50 (>60)
[2024-10-08 07:40] VITALS: BP 122/60; PULSE 85; RESP 20; TEMP 97.3; O2SAT 93
[2024-10-08] MEDS: ZOCOR TAB 20 MG PO SCH (08:28)
== END 2024-10-08 10:35 | disposition home or self-care (01) ==
LOC: MED/SURG 12:11 → ER 12:11 → MED/SURG 16:30
PROVIDERS: ADMIT Obstetrics & Gynecology Obstetrics; ATTEND Family Medicine
DX: G20.A1 Parkinson's disease without dyskinesia, without mention of fluctuations; F40.240 Claustrophobia; S82.65XA Nondisplaced fracture of lateral malleolus of left fibula, initial encounter for closed fracture; S51.811A Laceration without foreign body of right forearm, initial encounter; E11.65 Type 2 diabetes mellitus with hyperglycemia; I10 Essential (primary) hypertension; B96.29 Other Escherichia coli [E. coli] as the cause of diseases classified elsewhere; E78.2 Mixed hyperlipidemia; R29.810 Facial weakness; N39.0 Urinary tract infection, site not specified; M79.631 Pain in right forearm; E83.42 Hypomagnesemia; W18.39XA Other fall on same level, initial encounter; R42 Dizziness and giddiness; G45.8 Other transient cerebral ischemic attacks and related syndromes; R26.89 Other abnormalities of gait and mobility; Y92.096 Garden or yard of other non-institutional residence as the place of occurrence of the external cause; B96.1 Klebsiella pneumoniae [K. pneumoniae] as the cause of diseases classified elsewhere; R55 Syncope and collapse